=== PATIENT | male | born 1980 | race Caucasian/White ===

== ENCOUNTER 2016-07-06 14:02 | Emergency (ER) | payer OTHER ==
[2016-07-06 14:19] VITALS: BP 133/83
--- NOTE | 2016-07-06 15:58 | ER Document Report ---
HPI - HPI Pain Level: 4 Context: Assessment a 35-year-old male presents with primary complaining of hemorrhoids. Patient states his this is his first on that it's ever had has been bothering him since Thursday. Has been using Preparation H and witch ran over-the- counter which seemed to help at first and then over the past 2 days which increased in pain and he states is becoming a little bit darker in color. Otherwise he denies that he has been sitting for long periods of time and that he has not been straining. Otherwise he denies any past medical issues. - DERM Skin Color: Normal Past Medical History - Social History Smoking Status: Never Smoker Family History: Reviewed & Not Pertinent Patient has suicidal ideation: No Patient has homicidal ideation: No Renal/ Medical History: Denies: Hx Peritoneal Dialysis Vertical Provider Document - CONSTITUTIONAL Agree With Documented VS: Yes Exam Limitations: No Limitations General Appearance: WD/WN, No Apparent Distress - INFECTION CONTROL TRAVEL OUTSIDE OF THE [place] IN LAST 30 DAYS: No - RESPIRATORY Respiratory: Breath Sounds Normal, No Respiratory Distress, Chest Non-Tender. negative: Rales, Rhonchi, Wheezing O2 Sat by Pulse Oximetry: 99 - CARDIOVASCULAR Cardiovascular: Regular Rate, Regular Rhythm, No Murmur - GI/ABDOMEN Gastrointestinal: Abdomen Soft, Abdomen Non-Tender, No Organomegaly, Normal Bowel Sounds Notes: Evidence of 1 grade 2 hemorrhoids without evidence of thrombosis - NEURO Level of Consciousness: Awake, Alert, Appropriate Motor/Sensory: No Motor Deficit, No Sensory Deficit Course - Re-evaluation Re-evalutation: 07/06/16 21:37 Patient with a grade 2 hemorrhoids no indication for incision at this time. Instructed patient on home care and can follow-up with primary care as needed - Vital Signs Vital signs: Temp Pulse Resp BP Pulse Ox 98.1 F 50 L 17 133/83 H 99 07/06/16 14:17 07/06/16 14:17 07/06/16 14:17 07/06/16 14:17 07/06/16 14:17 Discharge - Discharge Clinical Impression: Hemorrhoids Condition: Good Disposition: HOME, SELF-CARE Additional Instructions: Hemorrhoids You have hemorrhoids. These are formed by enlargement of veins around the anus. The cause is increased pressure in the veins, from or straining at bowel movements. Hemorrhoids often cause itching and bleeding with bowel movements. When a hemorrhoid becomes clotted, severe pain and swelling result. Soothing creams and suppositories are often prescribed. Warm sitz-baths may also decrease pain, swelling, and itching. Eat a high-fiber diet. Stool softeners such as Metamucil will help. Keep the area very clean. Medicated cleansing pads (such as Tucks) are useful after bowel movements. A hose-mounted shower unit (like a shower massager at low water pressure) can be used to clean around tender hemorrhoid tags. You should call the doctor or return if you develop fever, increasing pain , or an enlarging mass around the anus, or if you simply fail to improve with treatment. Prescriptions: Phenylephrine HCl [Anusol Suppository] 1 supp.rect IA BID #[id number] supp.rect
== END 2016-07-06 16:00 | disposition home or self-care (01) ==
LOC: ER 14:02
DX: K64.9 Unspecified hemorrhoids (principal)
CPT/HCPCS: 99282